=== PATIENT | female | born 1995 | race Two or more races ===

== ENCOUNTER 2017-08-07 12:45 | Emergency (ER) | payer OTHER ==
[~2017-08-07] VITALS: Ht 165.1 cm; Wt 74.8 kg
[2017-08-07 13:10] VITALS: Ht 165.1 cm; Wt 74.8 kg
[2017-08-07 16:20] LABS: BASOPHIL % 0.4 % (0-2); PLATELET COUNT 279 x10^3mcL (130-400)
[2017-08-07 17:44] VITALS: BP 121/78
== END 2017-08-07 17:44 | disposition home or self-care (01) ==
LOC: ED 12:45
PROVIDERS: Emergency Medicine
DX: O20.0 Threatened abortion (principal); Z3A.13 13 weeks gestation of pregnancy
CPT/HCPCS: 36415

== ENCOUNTER 2017-08-09 09:31 | Emergency (ER) | payer OTHER ==
[~2017-08-09] VITALS: Ht 165.1 cm; Wt 74.4 kg
[2017-08-09 09:34] VITALS: BP 120/75; Ht 165.1 cm; Wt 74.4 kg
== END 2017-08-09 12:00 | disposition home or self-care (01) ==
LOC: ED 09:31
DX: O20.0 Threatened abortion (principal); Z3A.13 13 weeks gestation of pregnancy

== ENCOUNTER 2017-09-11 13:28 | Emergency (ER) | payer OTHER ==
[~2017-09-11] VITALS: Ht 162.6 cm; Wt 74.8 kg
[2017-09-11 13:45] VITALS: Ht 162.6 cm; Wt 74.8 kg
[2017-09-11 15:34] LABS: BASOPHIL % 0.3 % (0-2); PLATELET COUNT 241 x10^3mcL (130-400); RED CELL DISTRIBUTION WIDTH 13.1 % (11.5-14.5)
[2017-09-11 16:34] VITALS: BP 106/64
== END 2017-09-11 16:34 | disposition home or self-care (01) ==
LOC: ED 13:28
PROVIDERS: Emergency Medicine
DX: O03.9 Complete or unspecified spontaneous abortion without complication (principal); R10.30 Lower abdominal pain, unspecified; Z3A.17 17 weeks gestation of pregnancy
CPT/HCPCS: 36415

== ENCOUNTER 2017-09-16 01:59 | Inpatient (IN) | payer OTHER ==
[~2017-09-16] VITALS: Ht 165.1 cm; Wt 72.6 kg
[2017-09-16 02:08] VITALS: Ht 165.1 cm; Wt 72.6 kg
[2017-09-16 04:19] LABS: BASOPHIL % 0.8 % (0-2); PLATELET COUNT 210 x10^3mcL (130-400)
[2017-09-16 04:48] LABS: CALCIUM 8.5 mg/dL (8.5-10.1); CARBON DIOXIDE 25.1 mmol/L (21-32); CHLORIDE SERUM 106 mmol/L (98-107); CREATININE SERUM 0.6 mg/dL (0.6-1.0); GFR1 > 60 mL/min; GLUCOSE SERUM 109 mg/dL (74-106); POTASSIUM SERUM 3.9 mmol/L (3.5-5.1); SODIUM SERUM 140 mmol/L (136-145)
[2017-09-16 04:56] LABS: ALBUMIN 3.5 g/dL (3.4-5.0); ALKALINE PHOSPHATASE 88 U/L (46-116); ALT/SGPT 30 U/L (14-59); AST/SGOT 18 U/L (15-37); BILIRUBIN TOTAL 0.42 mg/dL (0.20-1.00); LIPASE 83 IU/L (73-393); TOTAL PROTEIN, SERUM 6.5 g/dL (6.4-8.2)
[2017-09-16 08:51] VITALS: BP 106/61
[2017-09-16 08:55] LABS: PHOSPHOROUS 4.2 mg/dL (2.5-4.9)
[2017-09-16 09:04] LABS: FREE T4 1.05 ng/dL (0.76-1.46); FREE THYROXINE INDEX 2.5 ug/dL (1.4-4.5); T4(THYROXINE) 7.5 ug/dL (4.7-13.3)
[2017-09-16 09:55] LABS: T3 TOTAL 1.57 ng/mL
[2017-09-16 11:59] VITALS: BP 106/54
[2017-09-16 14:35] LABS: UA SPECIFIC GRAVITY <=1.005 (1.005-1.035); microscopic required? YES; urine erythrocyte 3+ (NEGATIVE)
[2017-09-16 14:56] LABS: AMPHETAMINE QUAL UR NONE DETECTED (See below)
[2017-09-16 16:54] VITALS: BP 110/64
[2017-09-16 17:36] VITALS: BP 104/54
[2017-09-16 21:08] VITALS: BP 110/60
[2017-09-17 05:49] VITALS: BP 105/57
[2017-09-17 07:20] LABS: BASOPHIL % 0.2 % (0-2); PLATELET COUNT 222 x10^3mcL (130-400); RED CELL DISTRIBUTION WIDTH 12.9 % (11.5-14.5)
[2017-09-17 07:43] LABS: CALCIUM 8.5 mg/dL (8.5-10.1); CARBON DIOXIDE 25.1 mmol/L (21-32); CHLORIDE SERUM 108 mmol/L (98-107); CREATININE SERUM 0.5 mg/dL (0.6-1.0); GFR1 > 60 mL/min; GLUCOSE SERUM 111 mg/dL (74-106); MAGNESIUM 1.9 mg/dL (1.8-2.4); PHOSPHOROUS 4.4 mg/dL (2.5-4.9); POTASSIUM SERUM 4.3 mmol/L (3.5-5.1); SODIUM SERUM 142 mmol/L (136-145)
[2017-09-17 09:32] VITALS: BP 104/52
[2017-09-17 10:36] LABS: CHOLESTEROL/HDL RATIO 2.6
[2017-09-17 13:23] VITALS: BP 101/53
[2017-09-17 16:54] VITALS: BP 101/53
[2017-09-17] MEDS ORDERED: LEVAQUIN250 M1 PO (17:33)
[2017-09-17] MEDS ORDERED: LAC PO (17:33)
== END 2017-09-17 19:16 | disposition home or self-care (01) | DRG 544 ==
LOC: ED 01:59 → DU 06:54
PROVIDERS: Emergency Medicine; Internal Medicine; Obstetrics & Gynecology
PROC: 10D17ZZ Extraction of Products of Conception, Retained, Via Natural or Artificial Opening (ICD-10-PCS; principal; 2017-09-16 15:15)
DX: O46.91 Antepartum hemorrhage, unspecified, first trimester (principal); Z3A.10 10 weeks gestation of pregnancy
CPT/HCPCS: 83880; 84439; C1758; J1956; J2405; J2704; J3010; J3490; J7120; Q0092

== ENCOUNTER 2018-02-13 04:59 | Emergency (ER) | payer OTHER ==
[~2018-02-13] VITALS: Ht 162.6 cm; Wt 74.8 kg
[~2018-02-13 04:59] MED LIST: LAC PO; LEVAQUIN250 M1 PO
[2018-02-13 05:07] VITALS: Ht 162.6 cm; Wt 74.8 kg
[2018-02-13 06:38] LABS: BASOPHIL % 0.4 % (0-2); PLATELET COUNT 242 x10^3mcL (130-400); RED CELL DISTRIBUTION WIDTH 13.9 % (11.5-14.5)
[2018-02-13 06:55] LABS: CALCIUM 8.3 mg/dL (8.5-10.1); CARBON DIOXIDE 26.5 mmol/L (21-32); CHLORIDE SERUM 104 mmol/L (98-107); CREATININE SERUM 0.5 mg/dL (0.6-1.0); GFR1 > 60 mL/min; GLUCOSE SERUM 86 mg/dL (74-106); POTASSIUM SERUM 3.8 mmol/L (3.5-5.1); SODIUM SERUM 139 mmol/L (136-145)
[2018-02-13 07:00] LABS: ALBUMIN 3.5 g/dL (3.4-5.0); ALKALINE PHOSPHATASE 91 U/L (46-116); ALT/SGPT 36 U/L (14-59); AST/SGOT 16 U/L (15-37); LIPASE 104 IU/L (73-393); TOTAL PROTEIN, SERUM 7.6 g/dL (6.4-8.2)
[2018-02-13 07:45] LABS: UA SPECIFIC GRAVITY 1.025 (1.005-1.035); microscopic required? YES; urine erythrocyte NEGATIVE (NEGATIVE)
[2018-02-13 08:58] VITALS: BP 117/69
== END 2018-02-13 08:58 | disposition home or self-care (01) ==
LOC: ED 04:59
PROVIDERS: Emergency Medicine
DX: O26.891 Other specified pregnancy related conditions, first trimester (principal); R10.11 Right upper quadrant pain; R11.0 Nausea; Z3A.08 8 weeks gestation of pregnancy
CPT/HCPCS: 36415; J7030